=== PATIENT | male | born 1945 | race African-American/Black ===

== ENCOUNTER 2019-06-08 13:53 | Inpatient (IN) | payer OTHER ==
[~2019-06-08] VITALS: Ht 177.8 cm; Wt 108.5 kg
[~2019-06-08 13:53] MED LIST: AMLODIPINE; ASPI-264 OR; BP MED; HYDROCHLOROTHIAZIDE; INSLANTI; METF-370 OR; VALS320T15 OR; [UNRECOGNIZED DRUG - OTHER]
[2019-06-08 14:33] LABS: Basophils # (auto) 0 uL; Basophils % (auto) 0.2 % (0.0-2.0); Eosinophils # (auto) 0.1 uL; Eosinophils % (auto) 0.5 % (0.0-7.0); Hematocrit 42.6 % (41.0-53.0); Hemoglobin 14.3 g/dL (13.5-17.5); Lymphocytes # (auto) 1.4 uL; Lymphocytes % (auto) 10.4 % (10.0-50.0); Mean Corpuscular Hemoglobin 31.5 pg (28.0-32.0); Mean Corpuscular Hgb Conc. 33.7 g/dL (32.0-36.0); Mean Corpuscular Volume 93.7 fL (80.0-100.0); Monocytes # (auto) 1.5 uL; Monocytes % (auto) 11.6 % (0.0-12.0); Neutrophils # (auto) 10.2 uL; Neutrophils % (auto) 77.3 % (37.0-80.0); Platelet Count (auto) 218 10^3/uL (140-450); Red Blood Cells 4.54 10^6/uL (4.5-5.90); White Blood Cell 13.2 10^3/uL (4.4-10.8)
[2019-06-08 14:50] LABS: Albumin 3.9 g/dL (3.4-5.0); BUN/Creatinine Ratio 15.6; Calcium 9.8 mg/dL (8.5-10.1); Potassium 4.3 mmol/L (3.5-5.1)
[2019-06-08 14:55] LABS: Bilirubin, Total 0.4 mg/dL (0.2-1.0); Total Protein 8.3 g/dL (6.4-8.2)
[2019-06-08] MEDS ORDERED: ONDANSETRON HCL 4 MG/2 ML VIAL IV ONE ×2 (15:45→19:15)
[2019-06-08] MEDS ORDERED: MORPHINE SULF INJ 2 MG/ML SYRINGE 1ML IV ONE ×2 (15:45→19:15)
[2019-06-08] MEDS ORDERED: ASPirin 81 mg TAB PO ONE (16:00)
[2019-06-08] MEDS ORDERED: cefTRIAXone 1GM/50ML D5W 50 ML IV ONE (16:45)
[2019-06-08 18:29] LABS: INR 1.01 (0.9-1.15)
[2019-06-08] MEDS ORDERED: KETOROLAC TROMETH 30 MG/ML 1ML VIAL IV ONE (19:15)
[2019-06-08] MEDS ORDERED: ONDANSETRON HCL 4 MG/2 ML VIAL IV PRN (19:15)
[2019-06-08] MEDS ORDERED: hydrALAZINE HCL 20 MG/ML VL IV PRN (19:15)
[2019-06-08] MEDS ORDERED: NITROGLYCERIN 0.4 MG SL TAB SL PRN (19:15)
[2019-06-08] MEDS ORDERED: MORPHINE SULF INJ 2 MG/ML SYRINGE 1ML IV PRN (19:15)
[2019-06-08] MEDS ORDERED: SODIUM CHLORIDE 0.9% 1,000 ML IV ONE (19:15)
[2019-06-08] MEDS ORDERED: ACETAMINOPHEN 500 MG TAB PO PRN (19:15)
[2019-06-08] MEDS ORDERED: FUROSEMIDE 40 MG/4 ML VIAL IV ONE (19:45)
[2019-06-08] MEDS: ATORVASTATIN 20 MG TAB PO SCH (22:27)
[2019-06-08] MEDS: METOPROLOL TARTRATE 25 MG TAB PO SCH (22:28)
[2019-06-08] MEDS ORDERED: LOSA-39 PO (23:09)
[2019-06-08] MEDS ORDERED: METF-370 PO (23:09)
[2019-06-08] MEDS ORDERED: AMLO5TAB15 PO (23:09)
[2019-06-08 23:15] VITALS: BP 125/73
[2019-06-08] MEDS: MORPHINE SULF INJ 2 MG/ML SYRINGE 1ML IV PRN (23:29)
--- NOTE | 2019-06-08 23:31 | NUR ---
Telemetry admit from ER JOSH BLACK admitted to Telemetry unit. Patient oriented to Yoseph vaz RN, unit MST, room 248, bed A, and unit policies regarding patient care and visiting hours. Patient now on continuous telemetry monitoring, tele box #4 and telemetry reading on arrival to unit is SR 80. Patient placed on bedside oxygen, VS taken, weighed by bedscale and encouraged to call if they need something. Family at bedside. All questions and concerns addressed, patient verbalized understanding.
[2019-06-08 23:39] VITALS: BP 125/73
[2019-06-09] MEDS: HYDROcodone-ACET 5/325MG TAB PO PRN ×3 (03:01→21:51)
[2019-06-09 05:32] VITALS: BP 133/75
[2019-06-09] MEDS: MORPHINE SULF INJ 2 MG/ML SYRINGE 1ML IV PRN (05:51)
[2019-06-09 06:40] LABS: Basophils # (auto) 0 uL; Basophils % (auto) 0.4 % (0.0-2.0); Eosinophils # (auto) 0 uL; Eosinophils % (auto) 0.3 % (0.0-7.0); Hematocrit 37.7 % (41.0-53.0); Hemoglobin 12.9 g/dL (13.5-17.5); Lymphocytes # (auto) 1.4 uL; Lymphocytes % (auto) 14.5 % (10.0-50.0); Mean Corpuscular Hemoglobin 31.8 pg (28.0-32.0); Mean Corpuscular Hgb Conc. 34.1 g/dL (32.0-36.0); Mean Corpuscular Volume 93.3 fL (80.0-100.0); Monocytes # (auto) 1.5 uL; Monocytes % (auto) 15.6 % (0.0-12.0); Neutrophils # (auto) 6.8 uL; Neutrophils % (auto) 69.2 % (37.0-80.0); Platelet Count (auto) 189 10^3/uL (140-450); Red Blood Cells 4.04 10^6/uL (4.5-5.90); Red Cell Distribution Width 13.9 % (11.8-14.3); White Blood Cell 9.8 10^3/uL (4.4-10.8)
[2019-06-09 07:03] LABS: Calcium 9.2 mg/dL (8.5-10.1); Potassium 4.5 mmol/L (3.5-5.1)
--- NOTE | 2019-06-09 07:50 | NUR ---
Patient in bed, awake, oriented x4. No acute distress noted.
--- NOTE | 2019-06-09 08:29 | NUR ---
[employer] came over, stated patient has orders for Stress Test today, it's okay that patient has only one IV line for the test.
--- NOTE | 2019-06-09 08:45 | NUR ---
At Stress Lab at this time.
[2019-06-09 08:58] LABS: Cholesterol 217 mg/dL (< 200); HDL Cholesterol 132 mg/dL (40-59); LDL Cholesterol 68 mg/dL (< 100); Triglycerides 78 mg/dL (< 150)
[2019-06-09] MEDS ORDERED: ADENOSINE 88 MG in GIVE UN-DILUTED 0 ML IV STA (09:20)
--- NOTE | 2019-06-09 10:00 | NUR ---
Patient still at Nuclear Medicine for Stress Test at this time.
--- NOTE | 2019-06-09 11:02 | NUR ---
Patient back to room from Nuclear Medicine. at bedside.
--- NOTE | 2019-06-09 11:09 | NUR ---
O2 Sat = 88% on room air. Will put on O2 via nasal cannula.
--- NOTE | 2019-06-09 11:10 | NUR ---
O2 at 92% on O2 at 3 LPM via nasal cannula. Patient stated he takes Metformin pill at home, not the Insulin Regular injection. at bedside.
[2019-06-09] MEDS: ASPirin-EC 81 mg tab PO SCH (11:15)
[2019-06-09] MEDS: FAMOTIDINE 20 MG TAB PO SCH (11:15)
--- NOTE | 2019-06-09 11:15 | NUR ---
Called Kristen Perez MD to come over at 12:00 pm today to see the patient. Informed the patient.
[2019-06-09] MEDS: METOPROLOL TARTRATE 25 MG TAB PO SCH ×2 (11:16→21:48)
[2019-06-09] MEDS: LISINOPRIL 10 MG TAB PO SCH (11:17)
[2019-06-09] MEDS: cefTRIAXone 1GM/50ML D5W 50 ML IV SCH (11:17)
[2019-06-09] MEDS: AZITHROMYCIN 500MG/ 250ML 250 ML IV SCH (11:45)
--- NOTE | 2019-06-09 11:51 | NUR ---
[place] 5/325 PO given for pain. at bedside.
--- NOTE | 2019-06-09 12:55 | NUR ---
Kristen Perez at bedside. Patient refused Insulin Regular. MD ordered Accu check, Flu A&B, Metformin 1,000 mg BID, Accu check Q6.
[2019-06-09 13:00] VITALS: BP 152/75
[2019-06-09] MEDS ORDERED: DEXTROSE (50%) 50ML SYRG IV PRN (13:00)
--- NOTE | 2019-06-09 14:10 | NUR ---
Flu A&B Swab done. Specimen sent to Laboratory.
[2019-06-09 17:00] VITALS: BP 167/66
--- NOTE | 2019-06-09 17:32 | NUR ---
Called Pharmacy. Spoke with Pharmacist Kirstin if Adenosine given to patient on Stress Test today is a contrast. Ptaient is due for Metformin now as ordered. Kirstin said Adenosine is a not a contrast.
[2019-06-09] MEDS: metFORMIN HYDROCHLORIDE 500 MG TAB PO SCH (17:33)
[2019-06-09] MEDS: ACCU-CHEK COMFORT CURVE STRIP VI SCH (17:33)
--- NOTE | 2019-06-09 17:37 | NUR ---
Hydralazine Inj 10 mg given for BP = 167/66.
[2019-06-09] MEDS ORDERED: InsuLIN REG 1unit/0.01ml Soln (100units/ml) SC SCH (18:00)
--- NOTE | 2019-06-09 19:30 | NUR ---
Opening Shift Note Report received from day shift RN. Patient awake sitting in bed and A&O x4. No S/S of distress/SOB noted and denies pain at this time. Instructed on POC and to call for assist PRN, will continue to monitor for changes Q1hr and PRN.
[2019-06-09] MEDS: ATORVASTATIN 20 MG TAB PO SCH (21:47)
[2019-06-09 22:06] VITALS: BP 132/64
[2019-06-10] MEDS: ACCU-CHEK COMFORT CURVE STRIP VI SCH ×4 (00:49→18:11)
[2019-06-10] MEDS: MORPHINE SULF INJ 2 MG/ML SYRINGE 1ML IV PRN ×2 (01:51→09:06)
[2019-06-10 05:30] VITALS: BP 136/72
--- NOTE | 2019-06-10 07:50 | NUR ---
Patient sitting up in chair, awake, oriented x4, on O2 at 3 LPM. No acute distress noted. Left arm weakness noted. Patient asked if he can have medications for muscle spasm. Explained to patient the doctor will be informed for orders.
[2019-06-10 08:41] VITALS: BP 129/68
[2019-06-10] MEDS: cefTRIAXone 1GM/50ML D5W 50 ML IV SCH (09:06)
[2019-06-10] MEDS: metFORMIN HYDROCHLORIDE 500 MG TAB PO SCH ×2 (09:06→17:27)
[2019-06-10] MEDS: ASPirin-EC 81 mg tab PO SCH (09:06)
--- NOTE | 2019-06-10 09:06 | NUR ---
Morphine Sulf Inj 1 mg given for severe pain. Left arm with mild weakness. at bedside.
[2019-06-10] MEDS: LISINOPRIL 10 MG TAB PO SCH (09:07)
[2019-06-10] MEDS: METOPROLOL TARTRATE 25 MG TAB PO SCH ×2 (09:07→21:39)
[2019-06-10] MEDS: FAMOTIDINE 20 MG TAB PO SCH (09:07)
--- NOTE | 2019-06-10 10:20 | NUR ---
Kristen Perez at bedside. made aware patient has shortness of breath w/o O2 via nasal cannula, tends to desaturate at 87% to 88% on room air. Dr. Guerrier explained to patient that he will order Pulmonology Consult, may have to keep him for the weekend for additional tests. at bedside
--- NOTE | 2019-06-10 10:20 | NUR ---
Patient complained of muscle spasms. Kristen Perez ordered Flexeril 10 mg PO TID scheduled.
--- NOTE | 2019-06-10 10:25 | NUR ---
Called Nuclear Medicine. Spoke with Ben regarding the ordered NM VQ Scan yesterday but not done. Ben said patient was too weak to get up from chair to bed, it took a while for the Cardiolite Multiple to start yesterday. Ben said he won't be able to do the NM VQ Scan until Thursday, if it's okay with doctor, CT Scan can be done today. Informed Kristen Perez
--- NOTE | 2019-06-10 10:28 | NUR ---
Unit Wilder Allen to call Dr. Novoa for Pulmonology Consult.
[2019-06-10] MEDS: AZITHROMYCIN 500MG/ 250ML 250 ML IV SCH (10:32)
[2019-06-10 12:23] VITALS: BP 144/71
[2019-06-10] MEDS: CYCLOBENZAPRINE HCL 10 MG TAB PO SCH ×2 (12:23→21:39)
--- NOTE | 2019-06-10 12:28 | NUR ---
Accu check = 231 mg/dl.
--- NOTE | 2019-06-10 15:05 | NUR ---
Patient sitting up in bed, awake, mild weakness noted, oriented x4. On O2 at 3 LPM. No acute distress noted.
--- NOTE | 2019-06-10 16:15 | NUR ---
Dr. Ragsdale at bedside for Pulmonology Consult. Patient is unable to sit up straight without assist. MD ordered CT Angio Chest with contrast, Lovenox 40 mg SC daily, Albuterol 1.25 Q4 PRN for breathing treatment.
--- NOTE | 2019-06-10 16:17 | NUR ---
Hold Metformin for CT Angio Chest w/ contrast as ordered by Dr. Robles for Pulmonology.
--- NOTE | 2019-06-10 16:17 | NUR ---
Dr. Ragsdale made aware patient is on Metformin PO for DM, patient refused Insulin Regular. MD ordered to hold Metformin.
--- NOTE | 2019-06-10 16:43 | NUR ---
Called Radiology. Spoke with Niesha regarding CT Angio Chest w/ contrast. Patient on Metformin, refused Insulin R. Niesha said hold the Metformin for [address] Angio Chest w/ Contrast is done. Patient had lunch at 12:00 pm, patient has generalized weakness, oriented x4.
[2019-06-10] MEDS ORDERED: IOHEXOL 350 MG/ML 100ML IJ ONE (16:45)
--- NOTE | 2019-06-10 17:00 | NUR ---
Patient off unit. At Radiology for CT Angio Chest w/ contrast.
[2019-06-10 17:06] VITALS: BP 132/72
[2019-06-10 17:08] LABS: Basophils # (auto) 0 uL; Basophils % (auto) 0.2 % (0.0-2.0); Eosinophils # (auto) 0 uL; Eosinophils % (auto) 0.1 % (0.0-7.0); Hematocrit 39.2 % (41.0-53.0); Lymphocytes # (auto) 1.3 uL; Lymphocytes % (auto) 8.9 % (10.0-50.0); Mean Corpuscular Hemoglobin 31.2 pg (28.0-32.0); Mean Corpuscular Hgb Conc. 33.1 g/dL (32.0-36.0); Mean Corpuscular Volume 94.2 fL (80.0-100.0); Monocytes # (auto) 1.9 uL; Monocytes % (auto) 13.2 % (0.0-12.0); Neutrophils % (auto) 77.6 % (37.0-80.0); Platelet Count (auto) 194 10^3/uL (140-450); Red Blood Cells 4.16 10^6/uL (4.5-5.90); Red Cell Distribution Width 13.8 % (11.8-14.3); White Blood Cell 14.2 10^3/uL (4.4-10.8)
--- NOTE | 2019-06-10 17:10 | NUR ---
Patient back to room from Radiology, catching up his breath. O2 increased to 4 LPM via nasal cannula. Patient stated he will stay sitting up on bed for now.
--- NOTE | 2019-06-10 17:16 | NUR ---
Paged the RT for breathing treatment.
[2019-06-10 17:21] LABS: Partial Thromboplastin Time 25.8 sec (23.64-32.05)
[2019-06-10 17:24] LABS: Albumin 3.2 g/dL (3.4-5.0); Calcium 9.4 mg/dL (8.5-10.1); Potassium 4.5 mmol/L (3.5-5.1)
[2019-06-10 17:27] LABS: BUN/Creatinine Ratio 24.2; Bilirubin, Total 0.4 mg/dL (0.2-1.0); Total Protein 7.6 g/dL (6.4-8.2)
--- NOTE | 2019-06-10 17:28 | NUR ---
Hold Metformin for 48 hours. Patient received contrast post CT Angio Chest at Radiology as ordered.
--- NOTE | 2019-06-10 17:30 | NUR ---
Called Pharmacy that patient received IV contrast at Radiology. Hold the Metformin for 48 hours.
[2019-06-10] MEDS: ALBUTEROL SULF 2.5 MG/0.5ML(0.5%) NEB SOLN NEB PRN (17:51)
--- NOTE | 2019-06-10 17:56 | NUR ---
Respiratory note: PT STATES HE IS IN PAIN AT THIS TIME, RN NOTIFIED
[2019-06-10] MEDS: HYDROcodone-ACET 5/325MG TAB PO PRN (18:05)
--- NOTE | 2019-06-10 18:05 | NUR ---
[place] 5/325 PO given for pain.
--- NOTE | 2019-06-10 18:10 | NUR ---
Accu check = 180 mg/dl.
[2019-06-10 20:14] VITALS: BP 132/72
[2019-06-10] MEDS: ATORVASTATIN 20 MG TAB PO SCH (21:39)
[2019-06-10 22:42] VITALS: BP 125/66
[2019-06-11] MEDS: ACCU-CHEK COMFORT CURVE STRIP VI SCH ×5 (00:41→21:25)
[2019-06-11] MEDS: HYDROcodone-ACET 5/325MG TAB PO PRN (03:31)
[2019-06-11] MEDS: CYCLOBENZAPRINE HCL 10 MG TAB PO SCH ×3 (05:21→21:23)
[2019-06-11 05:33] VITALS: BP 150/73
--- NOTE | 2019-06-11 07:30 | NUR ---
Opening Shift Note Assumed care of patient, awake and alert. No S/S of distress/SOB or pain. Instructed on POC and to call for assist PRN, will continue to monitor for changes Q1hr and PRN.
--- NOTE | 2019-06-11 07:41 | NUR ---
ENDORSED CARE TO DAY SHIFT RN. NO S/S OF DISTRESS OR SOB AT THIS TIME.
[2019-06-11 08:00] VITALS: BP 140/77
[2019-06-11 08:46] VITALS: BP 140/77
[2019-06-11] MEDS: ASPirin-EC 81 mg tab PO SCH (09:58)
[2019-06-11] MEDS: cefTRIAXone 1GM/50ML D5W 50 ML IV SCH (09:58)
[2019-06-11] MEDS: LISINOPRIL 10 MG TAB PO SCH (09:59)
[2019-06-11] MEDS: METOPROLOL TARTRATE 25 MG TAB PO SCH ×2 (09:59→21:24)
[2019-06-11] MEDS: FAMOTIDINE 20 MG TAB PO SCH (09:59)
[2019-06-11] MEDS: ENOXAPARIN SOD 40 MG/0.4 ML SYRINGE SC SCH (10:01)
[2019-06-11] MEDS: AZITHROMYCIN 500MG/ 250ML 250 ML IV SCH (10:39)
[2019-06-11] MEDS ORDERED: DEXTROSE (50%) 50ML SYRG IV PRN (12:30)
[2019-06-11 14:13] VITALS: BP 143/85
--- NOTE | 2019-06-11 16:34 | NUR ---
PT ASSESSED FOR PRN MED NEB TX. PT IN NO DISTRESS NOTED ON 2L NC WITH SPO2 95%, HR 77, RR 16 WITH CLEAR/DIMINISHED BS. WILL CONTINUE TO MONITOR.
[2019-06-11 16:54] VITALS: BP 122/57
[2019-06-11] MEDS: InsuLIN REG 1unit/0.01ml Soln (100units/ml) SC SCH ×2 (17:47→21:24)
--- NOTE | 2019-06-11 19:34 | NUR ---
RT NOTE PT WAS SEEN BY RT FOR PRN HHN TX. PT STATES HE FEELS A LITTLE SOB BUT ITS BECAUSE HE JUST ATE. STATES NO TREATMENT NEEDED AT THIS TIME. PT ENCOURAGED TO CALL IF SOB PERSISTS. HR 86, RR 20, BS CLEAR/DIM, POX 95% ON 2L NASAL CANNULA. NO PRN TX GIVEN AT THIS TIME Addendum: 06/11/19 at 1945 by Soco Blandon RT Amended: Links added.
--- NOTE | 2019-06-11 19:40 | NUR ---
Opening Shift Note Assumed care of patient, AOX4. No S/S of distress/SOB. Visitor at bedside. Fall and safety precautions in place. Discussed / instructed on POC/personal choices and to call for assist PRN. Patient verbalized understanding to call when he needs something. Will continue to monitor for changes Q1hr and PRN.
--- NOTE | 2019-06-11 20:00 | NUR ---
EDUCATION PRN RT TX PATIENT EDUCTED OF PRN BREATHING TREATMENTS AND TO CALL IF HE EXPERIENCES ANY SHORTNESS OF BREATH. PATIENT IN AGREEMENT AND VERBALIZED UNDERSTANDING. RESPIRATIONS CURRENTLY EVEN AND UNLABORED. WILL CONTINUE TO MONITOR.
[2019-06-11] MEDS: ATORVASTATIN 20 MG TAB PO SCH (21:24)
[2019-06-11 22:00] VITALS: BP 131/64
[2019-06-12] MEDS: MORPHINE SULF INJ 2 MG/ML SYRINGE 1ML IV PRN (01:55)
[2019-06-12 05:00] VITALS: BP 148/80
[2019-06-12] MEDS: CYCLOBENZAPRINE HCL 10 MG TAB PO SCH ×3 (06:10→21:55)
[2019-06-12] MEDS: ACCU-CHEK COMFORT CURVE STRIP VI SCH ×4 (06:11→21:35)
[2019-06-12] MEDS: InsuLIN REG 1unit/0.01ml Soln (100units/ml) SC SCH ×4 (06:11→21:35)
--- NOTE | 2019-06-12 06:18 | NUR ---
RT CALLED UPON ENTERING ROOM, PATIENT IS DANGLING FEET IN BED. PATIENT ASKED IF HE IS FEELING SHORT OF BREATH AND PATIENT STATES, "A LITTLE". RESPIRATORY THERAPIST SPOKEN TO FOR REQUESTED BREATHING TREATMENT. RESPIRATIONS 22 BREATHS PER MINUTE, EVEN AND SLIGHTLY LABORED. WILL CONTINUE TO MONITOR.
--- NOTE | 2019-06-12 06:26 | NUR ---
RT AT BEDSIDE
[2019-06-12] MEDS: ALBUTEROL SULF 2.5 MG/0.5ML(0.5%) NEB SOLN NEB PRN (06:27)
[2019-06-12 08:00] VITALS: BP 143/71
[2019-06-12 08:18] VITALS: BP 143/71
[2019-06-12] MEDS: cefTRIAXone 1GM/50ML D5W 50 ML IV SCH (09:45)
[2019-06-12] MEDS: AZITHROMYCIN 500MG/ 250ML 250 ML IV SCH (09:45)
[2019-06-12] MEDS: ASPirin-EC 81 mg tab PO SCH (09:45)
[2019-06-12] MEDS: METOPROLOL TARTRATE 25 MG TAB PO SCH ×2 (09:47→21:56)
[2019-06-12] MEDS: LISINOPRIL 10 MG TAB PO SCH (09:47)
[2019-06-12] MEDS: ENOXAPARIN SOD 40 MG/0.4 ML SYRINGE SC SCH (09:49)
[2019-06-12] MEDS: FAMOTIDINE 20 MG TAB PO SCH (09:50)
--- NOTE | 2019-06-12 09:50 | NUR ---
TOLERANCE OF ROOM AIR PATIENT TAKEN OF OXYGEN TO SEE HOW HE TOLERATES ROOM AIR. PATIENT'S O2 SATURATION STARTED AT 94 PERCENT. AFTER 15 MINUTES THE PATIENT'S O2 SATURATION WAS 90 PERCENT. PATIENT NOT EXPERIENCING ANY DISTRESS OR SOB. WILL SEE WHAT PATIENT'S OXYGEN SAYS AFTER AMBULATION.
[2019-06-12 12:00] VITALS: BP 133/74
--- NOTE | 2019-06-12 14:45 | NUR ---
NUTRITION ASSESSMENT NOTES Please refer to link notes of nutrition screen form filed under the intervention section of the plan of care for further details. Est. Needs: 1650 kcal to 2150 kcal (15-20 kcal/kgBW), 75 gms to 90 gms pro (1.0-1.2 gms/kgIBW: 75 kg). Will continue to monitor pertinent labs and reassess nutrient need prn Thank you. Addendum: 06/12/19 at [address] Amended: Links added.
--- NOTE | 2019-06-12 17:00 | NUR ---
PATIENT WAS TITRATED OFF OXYGEN. LAST SATURATION WAS 94 PERCENT ON 0.5 L/MIN O2. ROOM AIR SATURATION DOWN TO 88 PERCENT. RESTARTED O2 1L/MIN, OXYGEN RECOVERED TO 95 PERCENT.
[2019-06-12 17:06] VITALS: BP 137/77
[2019-06-12] MEDS: metFORMIN HYDROCHLORIDE 500 MG TAB PO SCH (17:43)
--- NOTE | 2019-06-12 19:43 | NUR ---
Respiratory note: ASSESSMENT FOR PRN MED NEB TX. PT SITTING IN BED, NO RESPIRATORY DISTRESS NOTED. PT ON ROOM AIR, SPO2 89-90% AFTER RETURNING FROM THE RESTROOM. PT PLACED ON 1L NC. HR 88, SPO2 94% ON 1L, RR 18, BS DIMINISHED. MED NEB TX NOT INDICATED AT THIS TIME, PT AWARE TO HAVE RT PAGED IF MED NEB IS NEEDED, WILL CONTINUE TO MONITOR.
[2019-06-12] MEDS: ATORVASTATIN 20 MG TAB PO SCH (21:55)
[2019-06-12 22:00] VITALS: BP 129/72
[2019-06-13 05:00] VITALS: BP 148/77
[2019-06-13] MEDS: CYCLOBENZAPRINE HCL 10 MG TAB PO SCH (05:57)
--- NOTE | 2019-06-13 06:44 | NUR ---
Respiratory note: HR 85, RR 16, SPO2 95%, BS CLEAR. NO SIGNS OR SYMPTOMS OF RESPIRATORY DISTRESS NOTED. PT STATES BREATHING IS GOOD. PRN MED NEB NOT INDICATED AT THIS TIME. PT INFORMED TO HIT CALL BUTTON IF FEELING SOB OR WHEEZING.
[2019-06-13] MEDS: ACCU-CHEK COMFORT CURVE STRIP VI SCH ×2 (07:29→11:30)
[2019-06-13] MEDS: InsuLIN REG 1unit/0.01ml Soln (100units/ml) SC SCH ×2 (07:30→11:30)
[2019-06-13] MEDS: metFORMIN HYDROCHLORIDE 500 MG TAB PO SCH (08:00)
--- NOTE | 2019-06-13 08:00 | NUR ---
ASSUMED CARE SITTING AT SIDE OF BED TAKING IN BREAKFAST TRAY. VERBALLY APPROPRIATE. DENIES ANY DISCOMFORT.
[2019-06-13 08:32] VITALS: BP 143/73
[2019-06-13] MEDS: cefTRIAXone 1GM/50ML D5W 50 ML IV SCH (08:43)
[2019-06-13] MEDS: AZITHROMYCIN 500MG/ 250ML 250 ML IV SCH (10:37)
[2019-06-13] MEDS: ENOXAPARIN SOD 40 MG/0.4 ML SYRINGE SC SCH (10:37)
[2019-06-13] MEDS: ASPirin-EC 81 mg tab PO SCH (10:38)
[2019-06-13] MEDS: FAMOTIDINE 20 MG TAB PO SCH (10:38)
[2019-06-13] MEDS: METOPROLOL TARTRATE 25 MG TAB PO SCH (10:39)
[2019-06-13] MEDS: LISINOPRIL 10 MG TAB PO SCH (10:40)
[2019-06-13 12:21] VITALS: BP 141/80
--- NOTE | 2019-06-13 15:07 | NUR ---
ROUNDED TODAY AND ORDERED TO BE DISCHARGED HOME TODAY. REVIEWED DC INSTRUCTIONS AND PRESCRIPTIONS. IV REMOVED CANNULA INTACT. TELE MONITOR REMOVED, CLEANED AND RETURNED TO ICU. ID BAND OFF. DRESSED INTO HIS OWN CLOTHING, TO PRIVATE VEHICLE BY WC.
--- NOTE | 2019-06-14 09:22 | NUR ---
Assessment Pt is a 73 yr old alert and oriented male. Prior to admit, pt lived with his , Radha, who is his emergency contact at [phone]. Pt used no DME and is independent with ADL's. Pt admitted with chest and back pain. Pt's Primary is Dr. Grimm. Pt receives [employer] income and has no AD on file. Pt will d/c home upon medical clearance. Pt's will transport home. No needs assessed. Addendum: 06/14/19 at 0925 by GUILLERMO MULTANI Amended: Links added.
== END 2019-06-13 15:05 | disposition home or self-care (01) | DRG 193 ==
LOC: ER 13:53 → TELE 13:54 → TELE-EAST 22:48
PROVIDERS: ADMIT Nurse Practitioner Acute Care; ATTEND Family Medicine
DX: J18.9 Pneumonia, unspecified organism (principal); J96.00 Acute respiratory failure, unspecified whether with hypoxia or hypercapnia; I50.41 Acute combined systolic (congestive) and diastolic (congestive) heart failure; I24.9 Acute ischemic heart disease, unspecified; I11.0 Hypertensive heart disease with heart failure; E11.9 Type 2 diabetes mellitus without complications; E66.9 Obesity, unspecified; G89.29 Other chronic pain; D72.829 Elevated white blood cell count, unspecified; M54.5 Low back pain; I44.0 Atrioventricular block, first degree; Z79.82 Long term (current) use of aspirin; Z79.899 Other long term (current) drug therapy; Z82.49 Family history of ischemic heart disease and other diseases of the circulatory system; Z83.3 Family history of diabetes mellitus; Z79.4 Long term (current) use of insulin; Z79.84 Long term (current) use of oral hypoglycemic drugs; Z80.8 Family history of malignant neoplasm of other organs or systems
CPT/HCPCS: 36415; 71045; 71046; 71275; 78452; 80048; 80053; 80061; 82962; 83605; 83735; 83880; 84443; 84484; 85025; 85379; 85610; 85730; 86141; 87040; 87804; 93005; 93017; 93306; 93970; 94640; 96365; 96375; 96376; G0378; J0153; J0696; J1815; J1885; J2405

== ENCOUNTER → 2019-12-30 | Outpatient (CLI) | payer OTHER ==
[~2019-12-30] MED LIST changes: +AMLO5TAB15 PO; +LOSA-39 PO; +METF-370 PO
[2019-12-30 12:10] LABS: Basophils # (auto) 0 10 ^3/uL (0-0.2); Basophils % (auto) 0.4 % (0.0-2.0); Eosinophils # (auto) 0.1 10 ^3/uL (0-0.8); Eosinophils % (auto) 1.9 % (0.0-7.0); Hematocrit 39.4 % (41.0-53.0); Hemoglobin 13.1 g/dL (13.5-17.5); Lymphocytes # (auto) 1.9 10 ^3/uL (0.4-5.4); Lymphocytes % (auto) 28.6 % (10.0-50.0); Mean Corpuscular Hemoglobin 31.8 pg (28.0-32.0); Mean Corpuscular Hgb Conc. 33.4 g/dL (32.0-36.0); Mean Corpuscular Volume 95.3 fL (80.0-100.0); Monocytes # (auto) 0.9 10 ^3/uL (0-1.3); Neutrophils # (auto) 3.7 10 ^3/uL (1.6-8.6); Neutrophils % (auto) 55.1 % (37.0-80.0); Nucleated Red Blood Cells % 0.1 %; Platelet Count (auto) 163 10^3/uL (140-450); Red Blood Cells 4.13 10^6/uL (4.5-5.90); Red Cell Distribution Width 14.4 % (11.8-14.3); White Blood Cell 6.7 10^3/uL (4.4-10.8)
[2019-12-30 12:47] LABS: Potassium 4.3 mmol/L (3.5-5.1)
[2019-12-30 12:59] LABS: Albumin 3.9 g/dL (3.4-5.0); BUN/Creatinine Ratio 13.5; Bilirubin, Total 0.4 mg/dL (0.2-1.0); Total Protein 7.3 g/dL (6.4-8.2)
== END | disposition home or self-care (01) ==
LOC: LAB 11:49
PROVIDERS: ATTEND Internal Medicine
DX: E11.9 Type 2 diabetes mellitus without complications (principal); I10 Essential (primary) hypertension; R35.1 Nocturia
CPT/HCPCS: 36415; 80053; 83036; 84153; 85025; 85652

== ENCOUNTER → 2020-08-03 | Day surgery (SDC) | payer OTHER ==
[2020-07-31 09:31] LABS: Basophils # (auto) 0 10 ^3/uL (0-0.2); Basophils % (auto) 0.4 % (0.0-2.0); Eosinophils # (auto) 0.1 10 ^3/uL (0-0.8); Eosinophils % (auto) 1.1 % (0.0-7.0); Hematocrit 38.9 % (41.0-53.0); Hemoglobin 13.2 g/dL (13.5-17.5); Lymphocytes # (auto) 1.9 10 ^3/uL (0.4-5.4); Lymphocytes % (auto) 22.7 % (10.0-50.0); Mean Corpuscular Hemoglobin 31.4 pg (28.0-32.0); Mean Corpuscular Volume 92.5 fL (80.0-100.0); Monocytes % (auto) 11.6 % (0.0-12.0); Neutrophils # (auto) 5.3 10 ^3/uL (1.6-8.6); Neutrophils % (auto) 64.2 % (37.0-80.0); Nucleated Red Blood Cells % 0.1 %; Platelet Count (auto) 228 10^3/uL (140-450); Red Cell Distribution Width 14.9 % (11.8-14.3); White Blood Cell 8.3 10^3/uL (4.4-10.8)
[2020-07-31 09:47] LABS: INR 1.01 (0.9-1.15)
[~2020-08-03] VITALS: Ht 177.8 cm; Wt 106.6 kg
[~2020-08-03] MED LIST changes: +AMLO-489 PO; -AMLO5TAB15 PO; -AMLODIPINE; -ASPI-264 OR; +ASPI-264 PO; -BP MED; -HYDROCHLOROTHIAZIDE; -INSLANTI; +LIDOCAINE VISCOUS 2% 15ML UD ONE; -METF-370 OR; +SODIUM CHLORIDE LOCK 10 ML ONE; +TRIA75TA55 PO; -VALS320T15 OR; -[UNRECOGNIZED DRUG - OTHER]; +diphenhdrAMINE HCL 50 MG/1 ML VL ONE
[2020-08-03] MEDS: MIDAZOLAM HCL 5 MG/ML-1ML VIAL ONE ×3 (13:23→13:35)
[2020-08-03] MEDS: fentaNYL CITRATE 100 MCG/2 ML VL ONE ×3 (13:23→13:35)
[2020-08-03 14:15] VITALS: BP 138/82
== END | disposition home or self-care (01) ==
LOC: GI 11:09
PROVIDERS: ATTEND Internal Medicine Gastroenterology
DX: D64.9 Anemia, unspecified (principal); K29.50 Unspecified chronic gastritis without bleeding; K31.89 Other diseases of stomach and duodenum; K63.89 Other specified diseases of intestine; R68.89 Other general symptoms and signs; H26.9 Unspecified cataract; E66.9 Obesity, unspecified; M79.89 Other specified soft tissue disorders; E11.9 Type 2 diabetes mellitus without complications; Z20.822 Contact with and (suspected) exposure to COVID-19; Z68.33 Body mass index [BMI] 33.0-33.9, adult; Z80.8 Family history of malignant neoplasm of other organs or systems
CPT/HCPCS: 36415; 43239; 45380; 82962; 85025; 85610; 85730; 88305; 88342; J1200; J2250; J3010; J7030; U0003; 99152; 99153

== ENCOUNTER → 2020-09-24 | Outpatient (CLI) | payer OTHER ==
[~2020-09-24] MED LIST changes: -ASPI-264 PO; +ASPI325T33 PO; -LIDOCAINE VISCOUS 2% 15ML UD ONE; -SODIUM CHLORIDE LOCK 10 ML ONE; -diphenhdrAMINE HCL 50 MG/1 ML VL ONE
[2020-09-24 10:04] LABS: Basophils # (auto) 0 10 ^3/uL (0-0.2); Basophils % (auto) 0.4 % (0.0-2.0); Eosinophils # (auto) 0.1 10 ^3/uL (0-0.8); Eosinophils % (auto) 1.6 % (0.0-7.0); Hematocrit 38.4 % (41.0-53.0); Hemoglobin 13.1 g/dL (13.5-17.5); Lymphocytes # (auto) 1.6 10 ^3/uL (0.4-5.4); Lymphocytes % (auto) 23.2 % (10.0-50.0); Mean Corpuscular Hemoglobin 31.5 pg (28.0-32.0); Mean Corpuscular Hgb Conc. 34.2 g/dL (32.0-36.0); Monocytes # (auto) 0.8 10 ^3/uL (0-1.3); Monocytes % (auto) 11.5 % (0.0-12.0); Neutrophils # (auto) 4.3 10 ^3/uL (1.6-8.6); Neutrophils % (auto) 63.3 % (37.0-80.0); Platelet Count (auto) 178 10^3/uL (140-450); Red Blood Cells 4.17 10^6/uL (4.5-5.90); Red Cell Distribution Width 14.2 % (11.8-14.3); White Blood Cell 6.8 10^3/uL (4.4-10.8)
[2020-09-24 10:23] LABS: Potassium 4.6 mmol/L (3.5-5.1)
[2020-09-24 10:31] LABS: BUN/Creatinine Ratio 24.1; Bilirubin, Total 0.6 mg/dL (0.2-1.0); Calcium 9.2 mg/dL (8.5-10.1); Total Protein 7.2 g/dL (6.4-8.2)
[2020-09-24 11:01] LABS: Free T4 (Free Thyroxine) 1.16 ng/dL (0.89-1.76)
== END | disposition home or self-care (01) ==
LOC: LAB 09:06
PROVIDERS: ATTEND Internal Medicine
DX: E11.9 Type 2 diabetes mellitus without complications (principal); I10 Essential (primary) hypertension
CPT/HCPCS: 36415; 80053; 80061; 82607; 83036; 84439; 84443; 85025; 85652

== ENCOUNTER → 2021-01-10 | Outpatient (CLI) | payer OTHER ==
[2021-01-10 08:30] LABS: Basophils # (auto) 0 10 ^3/uL (0-0.2); Basophils % (auto) 0.5 % (0.0-2.0); Eosinophils # (auto) 0.1 10 ^3/uL (0-0.8); Eosinophils % (auto) 1.3 % (0.0-7.0); Hematocrit 38.7 % (41.0-53.0); Hemoglobin 13.1 g/dL (13.5-17.5); Lymphocytes # (auto) 1.9 10 ^3/uL (0.4-5.4); Lymphocytes % (auto) 26.4 % (10.0-50.0); Mean Corpuscular Hemoglobin 31.5 pg (28.0-32.0); Mean Corpuscular Hgb Conc. 33.9 g/dL (32.0-36.0); Mean Corpuscular Volume 92.9 fL (80.0-100.0); Monocytes # (auto) 0.7 10 ^3/uL (0-1.3); Monocytes % (auto) 9.4 % (0.0-12.0); Neutrophils # (auto) 4.5 10 ^3/uL (1.6-8.6); Neutrophils % (auto) 62.4 % (37.0-80.0); Red Blood Cells 4.16 10^6/uL (4.5-5.90); Red Cell Distribution Width 13.5 % (11.8-14.3); White Blood Cell 7.2 10^3/uL (4.4-10.8)
[2021-01-10 09:11] LABS: Potassium 4.3 mmol/L (3.5-5.1)
[2021-01-10 09:18] LABS: Albumin 3.6 g/dL (3.4-5.0); BUN/Creatinine Ratio 13.3; Bilirubin, Total 0.5 mg/dL (0.2-1.0); Calcium 8.8 mg/dL (8.5-10.1); Total Protein 7.4 g/dL (6.4-8.2); Uric Acid 5.3 mg/dL (3.5-7.2)
== END | disposition home or self-care (01) ==
LOC: LAB 08:00
PROVIDERS: ATTEND Internal Medicine
DX: E11.9 Type 2 diabetes mellitus without complications (principal); E78.5 Hyperlipidemia, unspecified; M25.50 Pain in unspecified joint
CPT/HCPCS: 36415; 80053; 82043; 83036; 83721; 84550; 85025; 85652; 86200; 86431

== ENCOUNTER → 2021-07-15 | Outpatient (CLI) | payer OTHER ==
[2021-07-15 13:31] LABS: Basophils # (auto) 0 10 ^3/uL (0-0.2); Basophils % (auto) 0.5 % (0.0-2.0); Eosinophils # (auto) 0.1 10 ^3/uL (0-0.8); Eosinophils % (auto) 0.6 % (0.0-7.0); Hematocrit 38.2 % (41.0-53.0); Hemoglobin 12.9 g/dL (13.5-17.5); Lymphocytes # (auto) 1.7 10 ^3/uL (0.4-5.4); Lymphocytes % (auto) 20.6 % (10.0-50.0); Mean Corpuscular Hemoglobin 31.5 pg (28.0-32.0); Mean Corpuscular Hgb Conc. 33.7 g/dL (32.0-36.0); Mean Corpuscular Volume 93.3 fL (80.0-100.0); Monocytes # (auto) 0.7 10 ^3/uL (0-1.3); Neutrophils # (auto) 5.6 10 ^3/uL (1.6-8.6); Neutrophils % (auto) 69.3 % (37.0-80.0); Nucleated Red Blood Cells % 0.1 %; Red Blood Cells 4.09 10^6/uL (4.5-5.90); Red Cell Distribution Width 13.7 % (11.8-14.3)
== END | disposition home or self-care (01) ==
LOC: LAB 09:35
PROVIDERS: ATTEND Internal Medicine
DX: E11.9 Type 2 diabetes mellitus without complications (principal); I10 Essential (primary) hypertension
CPT/HCPCS: 36415; 83036; 85025

== ENCOUNTER → 2021-09-17 | Outpatient (CLI) | payer OTHER ==
[2021-09-17 11:56] LABS: Basophils # (auto) 0 10 ^3/uL (0-0.2); Basophils % (auto) 0.4 % (0.0-2.0); Eosinophils # (auto) 0 10 ^3/uL (0-0.8); Eosinophils % (auto) 0.3 % (0.0-7.0); Hematocrit 36.8 % (41.0-53.0); Hemoglobin 12.7 g/dL (13.5-17.5); Lymphocytes # (auto) 1.3 10 ^3/uL (0.4-5.4); Lymphocytes % (auto) 15.8 % (10.0-50.0); Mean Corpuscular Hemoglobin 32.7 pg (28.0-32.0); Mean Corpuscular Hgb Conc. 34.4 g/dL (32.0-36.0); Mean Corpuscular Volume 94.9 fL (80.0-100.0); Monocytes # (auto) 0.8 10 ^3/uL (0-1.3); Monocytes % (auto) 9.9 % (0.0-12.0); Neutrophils # (auto) 6.2 10 ^3/uL (1.6-8.6); Neutrophils % (auto) 73.6 % (37.0-80.0); Red Blood Cells 3.88 10^6/uL (4.5-5.90); Red Cell Distribution Width 14.5 % (11.8-14.3); White Blood Cell 8.4 10^3/uL (4.4-10.8)
[2021-09-17 12:09] LABS: INR 1.04 (0.9-1.15)
[2021-09-17 12:31] LABS: Albumin 3.7 g/dL (3.4-5.0); Calcium 9.8 mg/dL (8.5-10.1); Potassium 5.2 mmol/L (3.5-5.1)
[2021-09-17 12:35] LABS: % Iron Saturation 35.8 % (20-55); BUN/Creatinine Ratio 25.9; Bilirubin, Total 0.4 mg/dL (0.2-1.0); Total Protein 7.2 g/dL (6.4-8.2)
[2021-09-17 12:38] LABS: Free T4 (Free Thyroxine) 1.16 ng/dL (0.89-1.76); Prostate Specific Antigen 1.75 ng/mL (0.0-4.0)
[2021-09-17 12:39] LABS: Thyroid Stimulating Hormone 0.89 uIU/mL (0.358-3.74)
== END | disposition home or self-care (01) ==
LOC: LAB 11:26
PROVIDERS: ATTEND Internal Medicine
DX: E11.9 Type 2 diabetes mellitus without complications (principal); D64.9 Anemia, unspecified; I10 Essential (primary) hypertension
CPT/HCPCS: 36415; 80053; 82607; 83036; 83540; 83550; 83615; 84153; 84439; 84443; 85025; 85610

== ENCOUNTER → 2022-01-30 | Outpatient (CLI) | payer OTHER | END | disposition home or self-care (01) | LOC: XYW 09:24 | PROVIDERS: ATTEND Internal Medicine | DX: I08.3 Combined rheumatic disorders of mitral, aortic and tricuspid valves (principal) | CPT/HCPCS: 93306 ==

== ENCOUNTER → 2022-02-10 | Outpatient (CLI) | payer OTHER ==
[~2022-02-10] VITALS: Ht 177.8 cm; Wt 99.8 kg
[2022-02-10 08:55] VITALS: BP 131/68
[2022-02-10] MEDS: ADENOSINE 84 MG in GIVE UN-DILUTED 0 ML IV ONE (09:04)
== END | disposition home or self-care (01) ==
LOC: XYW 07:40
PROVIDERS: ATTEND Internal Medicine
DX: Z01.810 Encounter for preprocedural cardiovascular examination (principal); I51.9 Heart disease, unspecified; I12.9 Hypertensive chronic kidney disease with stage 1 through stage 4 chronic kidney disease, or unspecified chronic kidney disease; E11.22 Type 2 diabetes mellitus with diabetic chronic kidney disease; N18.2 Chronic kidney disease, stage 2 (mild); E78.5 Hyperlipidemia, unspecified; D63.8 Anemia in other chronic diseases classified elsewhere; I70.0 Atherosclerosis of aorta; E66.09 Other obesity due to excess calories; Z79.4 Long term (current) use of insulin; Z68.31 Body mass index [BMI] 31.0-31.9, adult
CPT/HCPCS: 78452; 93017; A9500; J0153

== ENCOUNTER → 2022-02-20 | Outpatient (CLI) | payer OTHER ==
[~2022-02-20] MED LIST changes: +ATOR10TA52 PO; +GLIP5TAB12 PO; +HYDR-4902 PO; +HYDR50TA15 PO; +METF-929 PO; +SACU1TAB PO; +TRIA50TA2 PO
[2022-02-20 10:55] LABS: Basophils # (auto) 0 10 ^3/uL (0-0.2); Basophils % (auto) 0.6 % (0.0-2.0); Eosinophils # (auto) 0.1 10 ^3/uL (0-0.8); Eosinophils % (auto) 1.8 % (0.0-7.0); Hematocrit 37.2 % (41.0-53.0); Hemoglobin 12.3 g/dL (13.5-17.5); Lymphocytes # (auto) 1.6 10 ^3/uL (0.4-5.4); Lymphocytes % (auto) 24.6 % (10.0-50.0); Mean Corpuscular Hemoglobin 31.3 pg (28.0-32.0); Mean Corpuscular Volume 94.8 fL (80.0-100.0); Monocytes # (auto) 0.8 10 ^3/uL (0-1.3); Monocytes % (auto) 11.8 % (0.0-12.0); Neutrophils % (auto) 61.2 % (37.0-80.0); Nucleated Red Blood Cells % 0.1 %; Red Blood Cells 3.92 10^6/uL (4.5-5.90); Red Cell Distribution Width 13.4 % (11.8-14.3); White Blood Cell 6.4 10^3/uL (4.4-10.8)
[2022-02-20 11:13] LABS: Urine Bacteria NONE SEEN /hpf (None Seen); Urine Blood Negative /uL (Negative); Urine Specific Gravity 1.018 (1.001-1.035); Urine WBC 1 /hpf (0 - 3)
[2022-02-20 11:20] LABS: INR 0.99 (0.9-1.15); Partial Thromboplastin Time 20.2 sec (24.6-33.4)
[2022-02-20 11:24] LABS: Albumin 3.8 g/dL (3.4-5.0); Calcium 9.6 mg/dL (8.5-10.1); Potassium 4.5 mmol/L (3.5-5.1)
[2022-02-20 11:41] LABS: BUN/Creatinine Ratio 23.1; Bilirubin, Total 0.6 mg/dL (0.2-1.0); Total Protein 7.1 g/dL (6.4-8.2)
== END | disposition home or self-care (01) ==
LOC: LAB 10:19
PROVIDERS: ATTEND Internal Medicine
DX: Z01.812 Encounter for preprocedural laboratory examination (principal); E11.9 Type 2 diabetes mellitus without complications; I10 Essential (primary) hypertension; R06.02 Shortness of breath
CPT/HCPCS: 36415; 80053; 80061; 81001; 83036; 85025; 85610; 85730

== ENCOUNTER 2022-03-04 08:13 | Day surgery (SDC) | payer OTHER ==
[2022-02-28 11:50] LABS: Basophils # (auto) 0.1 10 ^3/uL (0-0.2); Basophils % (auto) 0.7 % (0.0-2.0); Eosinophils # (auto) 0.1 10 ^3/uL (0-0.8); Eosinophils % (auto) 0.9 % (0.0-7.0); Hematocrit 38.4 % (41.0-53.0); Hemoglobin 12.8 g/dL (13.5-17.5); Lymphocytes # (auto) 2.2 10 ^3/uL (0.4-5.4); Lymphocytes % (auto) 23.8 % (10.0-50.0); Mean Corpuscular Hemoglobin 31.8 pg (28.0-32.0); Mean Corpuscular Hgb Conc. 33.3 g/dL (32.0-36.0); Mean Corpuscular Volume 95.5 fL (80.0-100.0); Monocytes # (auto) 0.8 10 ^3/uL (0-1.3); Monocytes % (auto) 8.4 % (0.0-12.0); Neutrophils % (auto) 66.2 % (37.0-80.0); Nucleated Red Blood Cells % 0.1 %; Red Blood Cells 4.02 10^6/uL (4.5-5.90); Red Cell Distribution Width 13.1 % (11.8-14.3); White Blood Cell 9.1 10^3/uL (4.4-10.8)
[2022-02-28 12:06] LABS: INR 1.02 (0.9-1.15); Partial Thromboplastin Time 27.5 sec (24.6-33.4)
[2022-02-28 12:32] LABS: Albumin 4.1 g/dL (3.4-5.0); Calcium 9.3 mg/dL (8.5-10.1); Potassium 4.4 mmol/L (3.5-5.1)
[2022-02-28 12:36] LABS: BUN/Creatinine Ratio 14.3; Bilirubin, Total 0.6 mg/dL (0.2-1.0); Total Protein 7.3 g/dL (6.4-8.2)
[~2022-03-04] VITALS: Ht 177.8 cm; Wt 99.3 kg
[~2022-03-04 08:13] MED LIST changes: -AMLO-489 PO; -ATOR10TA52 PO; -METF-370 PO; -SACU1TAB PO; -TRIA75TA55 PO
[2022-03-04] MEDS ORDERED: LIDOCAINE 2%HCL (LOCAL ANESTH.) INJ 20ML MDV ONE (10:26)
[2022-03-04] MEDS ORDERED: IODIXANOL 320MG/ML 100ML BTL IV ONE (10:26)
[2022-03-04] MEDS ORDERED: HEPARIN SODIUM (PORCINE) 5000 UNITS/ML 1ML VIAL ONE (10:31)
[2022-03-04] MEDS ORDERED: VERAPAMIL 2.5MG/ML INJ 2ML VIAL IV ONE (10:31)
[2022-03-04] MEDS ORDERED: ANGIOMAX 250 MG VIAL IV ONE (10:31)
[2022-03-04] MEDS ORDERED: fentaNYL CITRATE 100 MCG/2 ML VL ONE (10:32)
[2022-03-04] MEDS ORDERED: SODIUM CHL 0.9% 0 ML ONE (10:32)
[2022-03-04] MEDS ORDERED: MIDAZOLAM HCL 2MG/2ML 2ml VIAL (1mg/ml) ONE (10:32)
[2022-03-04 11:13] VITALS: BP 175/103
[2022-03-04 11:28] VITALS: BP 173/89
[2022-03-04 11:43] VITALS: BP 160/94
[2022-03-04 11:58] VITALS: BP 157/104
[2022-03-04 12:30] VITALS: BP 168/91
[2022-03-04 13:00] VITALS: BP 169/98
[2022-04-10] MEDS ORDERED: SACU1TAB PO (16:28)
== END 2022-03-04 13:30 | disposition home or self-care (01) ==
LOC: CATH 08:13
PROVIDERS: ATTEND Internal Medicine
DX: R94.39 Abnormal result of other cardiovascular function study (principal); I70.0 Atherosclerosis of aorta; I25.10 Atherosclerotic heart disease of native coronary artery without angina pectoris; I12.9 Hypertensive chronic kidney disease with stage 1 through stage 4 chronic kidney disease, or unspecified chronic kidney disease; E11.22 Type 2 diabetes mellitus with diabetic chronic kidney disease; N18.2 Chronic kidney disease, stage 2 (mild); D63.8 Anemia in other chronic diseases classified elsewhere; E78.5 Hyperlipidemia, unspecified; Z79.4 Long term (current) use of insulin; Z79.899 Other long term (current) drug therapy; Z79.82 Long term (current) use of aspirin; Z20.822 Contact with and (suspected) exposure to COVID-19
CPT/HCPCS: 36415; 80053; 85025; 85610; 85730; 93458; C1769; C1887; C1894; J1644; J2250; J3010; Q9967; U0003; 99152; 99153

== ENCOUNTER 2022-04-14 07:03 | Inpatient (IN) | payer OTHER ==
[2022-04-10 11:17] LABS: Basophils # (auto) 0 10 ^3/uL (0-0.2); Basophils % (auto) 0.4 % (0.0-2.0); Eosinophils # (auto) 0.1 10 ^3/uL (0-0.8); Eosinophils % (auto) 0.9 % (0.0-7.0); Hematocrit 37.9 % (41.0-53.0); Hemoglobin 12.7 g/dL (13.5-17.5); Lymphocytes # (auto) 1.8 10 ^3/uL (0.4-5.4); Lymphocytes % (auto) 21.2 % (10.0-50.0); Mean Corpuscular Hemoglobin 31.2 pg (28.0-32.0); Mean Corpuscular Hgb Conc. 33.4 g/dL (32.0-36.0); Mean Corpuscular Volume 93.3 fL (80.0-100.0); Monocytes # (auto) 0.9 10 ^3/uL (0-1.3); Monocytes % (auto) 11.3 % (0.0-12.0); Neutrophils # (auto) 5.6 10 ^3/uL (1.6-8.6); Neutrophils % (auto) 66.2 % (37.0-80.0); Red Blood Cells 4.06 10^6/uL (4.5-5.90); Red Cell Distribution Width 13.4 % (11.8-14.3); White Blood Cell 8.4 10^3/uL (4.4-10.8)
[2022-04-10 11:19] LABS: Urine Bacteria NONE SEEN /hpf (None Seen); Urine Blood Negative /uL (Negative); Urine Specific Gravity 1.016 (1.001-1.035); Urine WBC <1 /hpf (0 - 3)
[2022-04-10 11:34] LABS: INR 0.99 (0.9-1.15); Partial Thromboplastin Time 27.1 sec (24.6-33.4)
[2022-04-10 12:34] LABS: Albumin 3.6 g/dL (3.4-5.0); Calcium 9.8 mg/dL (8.5-10.1); Potassium 4.4 mmol/L (3.5-5.1)
[2022-04-10 12:41] LABS: Bilirubin, Total 0.3 mg/dL (0.2-1.0); Total Protein 6.8 g/dL (6.4-8.2)
[~2022-04-14] VITALS: Ht 177.8 cm; Wt 112.0 kg
[~2022-04-14 07:03] MED LIST changes: +SACU1TAB PO
[2022-04-14] MEDS ORDERED: ceFAZolin 1GM/50ML 100 ML IV ONE (07:36)
[2022-04-14] MEDS ORDERED: ACETAMINOPHEN IV 100 ML IV ONE (08:20)
[2022-04-14] MEDS ORDERED: PREGABALIN CAPSULE 75 MG CAP ONE (08:21)
[2022-04-14] MEDS ORDERED: CELECOXIB 100 MG CAP ONE (08:21)
[2022-04-14] MEDS: BUPIVACAINE W/ EPINEPH 0.25% INJ 50ML MDV ONE ×2 (08:27→15:18)
[2022-04-14] MEDS: KETOROLAC TROMETH 60MG/2ML VIAL ONE ×2 (08:30→15:16)
[2022-04-14] MEDS ORDERED: VANCOMYCIN HCL 1000 MG VL ONE (08:31)
[2022-04-14] MEDS ORDERED: PREGABALIN CAPSULE 75 MG CAP PO ONE (08:45)
[2022-04-14] MEDS ORDERED: ACETAMINOPHEN IV 1000 MG/100ML (10MG/ML) IV ONE (08:45)
[2022-04-14] MEDS ORDERED: CELECOXIB 100 MG CAP PO ONE (08:45)
[2022-04-14] MEDS ORDERED: MORPHINE SULF PF 5 MG/10 ML VIAL ONE (08:50)
[2022-04-14] MEDS ORDERED: GLYCOPYRROLATE 0.2 MG/ML 1ML VIAL ONE ×3 (08:56→12:19)
[2022-04-14] MEDS ORDERED: fentaNYL CITRATE 100 MCG/2 ML VL ONE ×2 (08:56→09:22)
[2022-04-14] MEDS ORDERED: KETAMINE HCL 10 ML ONE (08:56)
[2022-04-14] MEDS ORDERED: MIDAZOLAM HCL 2MG/2ML 2ml VIAL (1mg/ml) ONE ×2 (08:56→09:22)
[2022-04-14] MEDS ORDERED: ONDANSETRON HCL 4 MG/2 ML VIAL ONE ×2 (08:56→11:51)
[2022-04-14] MEDS ORDERED: ROPIVACAINE 0.5% (5MG/ML) 20ML AMPULE IJ ONE (09:00)
[2022-04-14] MEDS ORDERED: ROCURONIUM 10MG/ML 10ML VIAL IV ONE (09:48)
[2022-04-14] MEDS ORDERED: TRANEXAMIC ACID 20 ML ONE (10:00)
[2022-04-14] MEDS ORDERED: ONDANSETRON HCL 4 MG/2 ML VIAL IV PRN (11:00)
[2022-04-14] MEDS ORDERED: HYDROmorphone HCL 2 MG/ML VL/or syr IV PRN ×2 (11:00)
[2022-04-14] MEDS ORDERED: ACETAMINOPHEN 325 MG TAB PO PRN (11:30)
[2022-04-14] MEDS ORDERED: NITROGLYCERIN 0.4 MG SL TAB SL PRN (11:30)
[2022-04-14] MEDS ORDERED: HYDROcodone-ACET 5/325MG TAB PO PRN (11:30)
[2022-04-14] MEDS ORDERED: ASPirin-EC 325mg tab PO SCH (11:30)
[2022-04-14] MEDS ORDERED: MORPHINE SULFATE INJ 2 MG/ml SYRG IV PRN (11:30)
[2022-04-14] MEDS ORDERED: IBUPROFEN 600 MG TAB PO PRN (11:30)
[2022-04-14] MEDS ORDERED: HYDROmorphone HCL 2 MG/ML VL/or syr ONE (11:38)
[2022-04-14] MEDS ORDERED: DEXTROSE (50%) 50ML SYRG IV PRN (11:45)
[2022-04-14] MEDS ORDERED: NEOSTIGMINE 1 MG/ML INJ (10mg/10ML VIAL) ONE (11:51)
[2022-04-14] MEDS ORDERED: PROPOFOL 10 MG/ML 20 ML IV ONE (11:52)
[2022-04-14] MEDS ORDERED: NALOXONE HCL 0.4 MG/ML VIAL ONE (12:11)
[2022-04-14] MEDS ORDERED: LABETALOL HCL 5 MG/ML 4ML SYRINGE IV PRN (12:45)
[2022-04-14] MEDS: InsuLIN REG 1unit/0.01ml Soln (100units/ml) SC SCH (22:00)
[2022-04-14] MEDS: PANTOPRAZOLE 40 MG TAB PO SCH (22:03)
[2022-04-14] MEDS: SODIUM CHLOR 0.9% PF (SALINE LOCK) 10ML VIAL/SYR IV SCH (22:04)
[2022-04-14] MEDS: ACCU-CHEK COMFORT CURVE STRIP VI SCH (22:04)
[2022-04-14] MEDS: hydrALAZINE HCL 25 MG TAB PO SCH (22:04)
[2022-04-14] MEDS: ceFAZolin 1GM/50ML 50 ML IV SCH (22:05)
[2022-04-14 22:14] VITALS: BP 112/52
[2022-04-14 23:34] VITALS: BP 117/59
[2022-04-15] MEDS: HYDROmorphone HCL 2 MG/ML VL/or syr IV PRN ×2 (05:14→14:02)
[2022-04-15 05:19] VITALS: BP 121/63
[2022-04-15] MEDS: ceFAZolin 1GM/50ML 50 ML IV SCH (05:27)
[2022-04-15] MEDS: SODIUM CHLOR 0.9% PF (SALINE LOCK) 10ML VIAL/SYR IV SCH ×3 (05:27→21:51)
[2022-04-15 05:40] LABS: Basophils # (auto) 0 10 ^3/uL (0-0.2); Basophils % (auto) 0.2 % (0.0-2.0); Eosinophils # (auto) 0 10 ^3/uL (0-0.8); Eosinophils % (auto) 0.2 % (0.0-7.0); Hematocrit 32.9 % (41.0-53.0); Hemoglobin 11.2 g/dL (13.5-17.5); Lymphocytes # (auto) 1.1 10 ^3/uL (0.4-5.4); Lymphocytes % (auto) 10.6 % (10.0-50.0); Mean Corpuscular Hgb Conc. 34.2 g/dL (32.0-36.0); Mean Corpuscular Volume 93.7 fL (80.0-100.0); Monocytes # (auto) 1.5 10 ^3/uL (0-1.3); Monocytes % (auto) 14.3 % (0.0-12.0); Neutrophils % (auto) 74.7 % (37.0-80.0); Red Blood Cells 3.51 10^6/uL (4.5-5.90); Red Cell Distribution Width 13.6 % (11.8-14.3); White Blood Cell 10.7 10^3/uL (4.4-10.8)
[2022-04-15 06:20] LABS: Calcium 8.5 mg/dL (8.5-10.1); Potassium 4.7 mmol/L (3.5-5.1)
[2022-04-15] MEDS: ACCU-CHEK COMFORT CURVE STRIP VI SCH ×4 (06:27→21:51)
[2022-04-15] MEDS: InsuLIN REG 1unit/0.01ml Soln (100units/ml) SC SCH ×4 (06:27→21:52)
[2022-04-15 08:15] VITALS: BP 150/84
[2022-04-15 09:00] VITALS: BP 150/84
[2022-04-15] MEDS: ASPirin-EC 325mg tab PO SCH (09:51)
[2022-04-15] MEDS: SACUBITRIL-VALSARTAN 24mg/26mg TAB PO SCH (09:51)
[2022-04-15] MEDS: hydrALAZINE HCL 25 MG TAB PO SCH ×2 (09:51→21:45)
[2022-04-15] MEDS: PANTOPRAZOLE 40 MG TAB PO SCH ×2 (09:52→21:46)
[2022-04-15] MEDS ORDERED: LOSARTAN POTASSIUM 50 MG TAB PO SCH ×2 (10:00)
[2022-04-15] MEDS ORDERED: TRIAMTERENE/HCTZ 75/50MG TABLET PO SCH (10:00)
[2022-04-15] MEDS: SODIUM CHLORIDE 0.9% 1,000 ML IV SCH (12:16)
[2022-04-15 13:00] VITALS: BP 131/68
[2022-04-15 17:00] VITALS: BP 131/68
[2022-04-15 20:00] VITALS: BP 161/80
[2022-04-16] MEDS: SODIUM CHLORIDE 0.9% 1,000 ML IV SCH (04:32)
[2022-04-16 05:00] VITALS: BP 102/57
[2022-04-16 06:03] LABS: BUN/Creatinine Ratio 24.2; Calcium 8.8 mg/dL (8.5-10.1); Potassium 4.4 mmol/L (3.5-5.1)
[2022-04-16] MEDS: SODIUM CHLOR 0.9% PF (SALINE LOCK) 10ML VIAL/SYR IV SCH (06:59)
[2022-04-16] MEDS: InsuLIN REG 1unit/0.01ml Soln (100units/ml) SC SCH ×2 (06:59→11:21)
[2022-04-16] MEDS: ACCU-CHEK COMFORT CURVE STRIP VI SCH ×2 (06:59→11:21)
[2022-04-16 09:00] VITALS: BP 136/72
[2022-04-16] MEDS: SACUBITRIL-VALSARTAN 24mg/26mg TAB PO SCH (10:52)
[2022-04-16] MEDS: hydrALAZINE HCL 25 MG TAB PO SCH (10:52)
[2022-04-16] MEDS: ASPirin-EC 325mg tab PO SCH (10:53)
[2022-04-16] MEDS: PANTOPRAZOLE 40 MG TAB PO SCH (10:53)
[2022-04-16 12:19] VITALS: BP 136/72
== END 2022-04-16 13:00 | disposition home or self-care (01) | DRG 483 ==
LOC: SUR 07:03 → OVERFLOW 11:31 → TELE-EAST 17:45 → EAST 04-16 05:12
PROVIDERS: ADMIT Orthopaedic Surgery Adult Reconstructive Orthopaedic Surgery; ATTEND Internal Medicine
PROC: 0RRK00Z Replacement of Left Shoulder Joint with Reverse Ball and Socket Synthetic Substitute, Open Approach (ICD-10-PCS; principal; 2022-04-14 09:18)
DX: M75.102 Unspecified rotator cuff tear or rupture of left shoulder, not specified as traumatic (principal); N17.0 Acute kidney failure with tubular necrosis; I50.42 Chronic combined systolic (congestive) and diastolic (congestive) heart failure; E11.9 Type 2 diabetes mellitus without complications; E66.9 Obesity, unspecified; I11.0 Hypertensive heart disease with heart failure; Z20.822 Contact with and (suspected) exposure to COVID-19; Z88.1 Allergy status to other antibiotic agents; Z68.35 Body mass index [BMI] 35.0-35.9, adult
CPT/HCPCS: 36415; 71045; 73020; 80048; 80053; 81001; 82962; 85025; 85610; 85730; 86850; 86900; 86901; G0378; J0131; J0690; J1815; J1885; J2250; J2405; J2704

== ENCOUNTER → 2022-08-26 | Outpatient (CLI) | payer OTHER ==
[2022-08-26 12:05] LABS: Basophils # (auto) 0.1 10 ^3/uL (0-0.2); Basophils % (auto) 0.6 % (0.0-2.0); Eosinophils # (auto) 0.1 10 ^3/uL (0-0.8); Eosinophils % (auto) 1.2 % (0.0-7.0); Hematocrit 38.9 % (41.0-53.0); Hemoglobin 13.3 g/dL (13.5-17.5); Lymphocytes # (auto) 2.2 10 ^3/uL (0.4-5.4); Lymphocytes % (auto) 23.6 % (10.0-50.0); Mean Corpuscular Hemoglobin 30.4 pg (28.0-32.0); Mean Corpuscular Hgb Conc. 34.2 g/dL (32.0-36.0); Mean Corpuscular Volume 88.7 fL (80.0-100.0); Monocytes # (auto) 1.1 10 ^3/uL (0-1.3); Monocytes % (auto) 12.1 % (0.0-12.0); Neutrophils # (auto) 5.7 10 ^3/uL (1.6-8.6); Neutrophils % (auto) 62.5 % (37.0-80.0); Red Blood Cells 4.39 10^6/uL (4.5-5.90); Red Cell Distribution Width 16.8 % (11.8-14.3); White Blood Cell 9.1 10^3/uL (4.4-10.8)
[2022-08-26 12:16] LABS: Albumin 3.9 g/dL (3.4-5.0); Calcium 9.7 mg/dL (8.5-10.1); Potassium 5.5 mmol/L (3.5-5.1)
[2022-08-26 12:19] LABS: BUN/Creatinine Ratio 24.4 (10.0-20.0); Bilirubin, Total 0.4 mg/dL (0.2-1.0); Total Protein 7.5 g/dL (6.4-8.2)
[2022-08-26 12:27] LABS: Prostate Specific Antigen 2.86 ng/mL (0.0-4.0)
== END | disposition home or self-care (01) ==
LOC: LAB 11:30
PROVIDERS: ATTEND Internal Medicine
DX: E11.9 Type 2 diabetes mellitus without complications (principal); D64.9 Anemia, unspecified; R60.0 Localized edema
CPT/HCPCS: 36415; 80053; 82607; 83036; 83615; 83880; 84153; 85025; 85652

== ENCOUNTER → 2023-05-01 | Outpatient (CLI) | payer OTHER ==
[~2023-05-01] MED LIST changes: +ASPI1TAB38 PO; -ASPI325T33 PO; +HYDR-4297 PO; -HYDR50TA15 PO; -LOSA-39 PO; +LOSA100T58 PO; -TRIA50TA2 PO; +TRIA75TA11 PO
[2023-05-01 08:56] LABS: Urine Bacteria NONE SEEN /hpf (None Seen); Urine Blood Negative /uL (Negative); Urine Clarity Clear (Clear); Urine Protein, UAD 1+ (Negative); Urine Specific Gravity 1.009 (1.001-1.035); Urine Urobilinogen Normal (Negative); Urine WBC 1 /hpf (0 - 3)
[2023-05-01 08:58] LABS: Urine Color Straw (Yellow)
[2023-05-01 09:05] LABS: Basophils # (auto) 0 10 ^3/uL (0-0.2); Basophils % (auto) 0.6 % (0.0-2.0); Eosinophils # (auto) 0.1 10 ^3/uL (0-0.8); Eosinophils % (auto) 1.5 % (0.0-7.0); Hematocrit 38.2 % (41.0-53.0); Hemoglobin 12.7 g/dL (13.5-17.5); Lymphocytes # (auto) 1.8 10 ^3/uL (0.4-5.4); Lymphocytes % (auto) 23.8 % (10.0-50.0); Mean Corpuscular Hemoglobin 31.4 pg (28.0-32.0); Mean Corpuscular Hgb Conc. 33.2 g/dL (32.0-36.0); Mean Corpuscular Volume 94.3 fL (80.0-100.0); Monocytes % (auto) 13.1 % (0.0-12.0); Neutrophils # (auto) 4.7 10 ^3/uL (1.6-8.6); Red Blood Cells 4.05 10^6/uL (4.5-5.90); Red Cell Distribution Width 14.5 % (11.8-14.3); White Blood Cell 7.6 10^3/uL (4.4-10.8)
[2023-05-01 09:43] LABS: Alanine Aminotransferase 14 U/L (7-40); Albumin 4.4 g/dL (3.2-4.8); Alkaline Phosphatase 54 U/L (46-116); Anion Gap 9 (5-15); Aspartate Aminotransferase 21 U/L (13-40); BUN/Creatinine Ratio 19.8 (10.0-20.0); Blood Urea Nitrogen 23 mg/dL (9-23); Calcium 10.2 mg/dL (8.5-10.1); Carbon Dioxide 29 mmol/L (20-30); Chloride 100 mmol/L (98-107); Glucose 123 mg/dL (74-106); Sodium 138 mmol/L (136-145)
[2023-05-01 09:44] LABS: Bilirubin, Total 0.6 mg/dL (0.2-1.0); Total Protein 7.3 g/dL (5.7-8.2)
== END | disposition home or self-care (01) ==
LOC: LAB 08:30
PROVIDERS: ATTEND Internal Medicine
DX: E11.9 Type 2 diabetes mellitus without complications (principal); I10 Essential (primary) hypertension
CPT/HCPCS: 36415; 80053; 81001; 82043; 83036; 85025

== ENCOUNTER → 2024-04-12 | Outpatient (CLI) | payer OTHER ==
[~2024-04-12] MED LIST changes: -GLIP5TAB12 PO; +GLIP5TAB21 PO; -HYDR-4297 PO; +HYDR50TA47 PO; +LOSA-535 PO; -LOSA100T58 PO
[2024-04-12 12:10] LABS: Basophils # (auto) 0 10 ^3/uL (0-0.2); Basophils % (auto) 0.4 % (0.0-2.0); Eosinophils # (auto) 0.1 10 ^3/uL (0-0.8); Eosinophils % (auto) 1.2 % (0.0-7.0); Hematocrit 38.1 % (41.0-53.0); Hemoglobin 13.1 g/dL (13.5-17.5); Lymphocytes # (auto) 2.4 10 ^3/uL (0.4-5.4); Lymphocytes % (auto) 24.4 % (10.0-50.0); Mean Corpuscular Hemoglobin 32.5 pg (28.0-32.0); Mean Corpuscular Hgb Conc. 34.3 g/dL (32.0-36.0); Mean Corpuscular Volume 94.6 fL (80.0-100.0); Monocytes # (auto) 1.2 10 ^3/uL (0-1.3); Monocytes % (auto) 11.8 % (0.0-12.0); Neutrophils # (auto) 6.2 10 ^3/uL (1.6-8.6); Neutrophils % (auto) 62.2 % (37.0-80.0); Platelet Count (auto) 213 10^3/uL (140-450); Red Blood Cells 4.03 10^6/uL (4.5-5.90); Red Cell Distribution Width 14.5 % (11.8-14.3)
[2024-04-12 13:00] LABS: Erythrocyte Sedimentation Rate 6 mm/hr (0-20)
[2024-04-12 13:12] LABS: Alanine Aminotransferase 20 U/L (7-40); Alkaline Phosphatase 47 U/L (46-116); Chloride 103 mmol/L (98-107)
[2024-04-12 13:13] LABS: Albumin 4.7 g/dL (3.2-4.8); Anion Gap 7 (5-15); Aspartate Aminotransferase 18 U/L (13-40); BUN/Creatinine Ratio 19.5 (10.0-20.0); Bilirubin, Total 0.6 mg/dL (0.2-1.0); Blood Urea Nitrogen 23 mg/dL (9-23); Carbon Dioxide 27 mmol/L (20-31); Glucose 101 mg/dL (74-106); Potassium 5.5 mmol/L (3.5-5.1); Sodium 137 mmol/L (136-145); Total Protein 7.6 g/dL (5.7-8.2); Uric Acid 7.7 mg/dL (3.7-9.2)
[2024-04-12 13:30] LABS: CRP High Sensitivity 0.14 mg/dL (<1.0)
== END | disposition home or self-care (01) ==
LOC: LAB 11:43
PROVIDERS: ATTEND Internal Medicine
DX: M10.9 Gout, unspecified (principal); Z79.899 Other long term (current) drug therapy
CPT/HCPCS: 36415; 80053; 83036; 84550; 85025; 85652; 86141

== ENCOUNTER → 2025-03-24 | Outpatient (CLI) | payer OTHER ==
[2025-03-24 08:28] LABS: Hematocrit 40.9 % (41.0-53.0); Hemoglobin 13.8 g/dL (13.5-17.5); Mean Corpuscular Hemoglobin 30.9 pg (28.0-32.0); Mean Corpuscular Volume 91.7 fL (80.0-100.0); Nucleated Red Blood Cells % 0.0 %
[2025-03-24 08:31] LABS: Urine Protein, UAD TRACE (Negative)
[2025-03-24 08:57] LABS: Alanine Aminotransferase 16 U/L (7-40); Albumin 4.4 g/dL (3.2-4.8); Alkaline Phosphatase 53 U/L (46-116); Anion Gap 11 (5-15); BUN/Creatinine Ratio 14.9 (10.0-20.0); Bilirubin, Total 0.7 mg/dL (0.2-1.0); Blood Urea Nitrogen 17 mg/dL (9-23); Calcium 9.9 mg/dL (8.7-10.4); Carbon Dioxide 31 mmol/L (20-31); Chloride 99 mmol/L (98-107); Potassium 4.0 mmol/L (3.5-5.1); Prostate Specific Antigen 3.64 ng/mL (0.0-4.0); Sodium 141 mmol/L (136-145); Total Protein 7.9 g/dL (5.7-8.2); Triglycerides 48 mg/dL (< 150)
[2025-03-24 08:58] LABS: Cholesterol 256 mg/dL (< 200); Glucose 119 mg/dL (74-106); HDL Cholesterol 162 mg/dL (40-59)
[2025-03-24 09:01] LABS: Free T4 (Free Thyroxine) 1.23 ng/dL (0.89-1.76)
[2025-03-24 10:14] LABS: Uric Acid 6.8 mg/dL (3.7-9.2)
== END | disposition home or self-care (01) ==
LOC: LAB 08:08
PROVIDERS: ATTEND Internal Medicine
DX: I11.0 Hypertensive heart disease with heart failure (principal); I50.9 Heart failure, unspecified; E11.9 Type 2 diabetes mellitus without complications; Z79.899 Other long term (current) drug therapy
CPT/HCPCS: 36415; 80053; 80061; 81001; 82043; 82607; 84153; 84439; 84443; 84550; 85025; 85652